=== PATIENT | female | born 1985 | race Caucasian/White ===

== ENCOUNTER 2024-06-05 04:55 | Inpatient (IN) | payer BC, SELFPAY ==
[2024-06-05] VITALS (112 sets, daily range): BP systolic 81–123; BP diastolic 30–106; PULSE 62–222; RESP 16–18; TEMP 36.8–37; O2SAT 93–100; BMI 26.6
--- NOTE | 2024-06-05 05:41 | LDADM ---
This patient, Tracy Arteaga, was admitted to Labor/Delivery/Recovery 104 on 06/05/24 at 04:55. Plans for labor, pain management and were discussed with patient. Patient/family oriented to hospital policies and general routines including ID bracelet, bed and alarms, visiting hours, pain management, procedures, bathroom and other care routines, personal items, smoking policy, room service/diet and guest tray routines, infant security routines, and visiting hours. Patient/Family are encouraged to report perceived risks to care and to ask questions if they do not understand what they are told or what they should do. See OBIX for further documentation.
[2024-06-05 05:43] LABS: Basophils Percent Auto 0.1 % (0.2-1.2); Hematocrit 34.5 % (37.0-47.0); Hemoglobin 11.5 g/dL (12.0-15.0); Immature Granulocyte Absolute 0.08 K/mm3 (0.00-0.031); Immature Granulocyte Percent A 1.1 % (0-0.5); Lymphocytes Absolute Auto 2.04 K/mm3 (0.9-3.2); Lymphocytes Percent Auto 26.9 % (18.3-44.2); Mean Corpuscular HGB Conc 33.3 g/dl (32-36); Mean Corpuscular Hemoglobin 29.7 pg (26-34); Mean Corpuscular Volume 89.1 fl (80-100); Mean Platelet Volume 10.9 fl (7.4-10.4); Monocytes Absolute Auto 0.6 K/mm3 (0.1-0.6); Monocytes Percent Auto 8.5 % (2.6-8.5); Neutrophils Absolute Auto 4.8 K/mm3 (1.3-6.7); Neutrophils Percent Auto 63.4 % (45.5-73.1); Platelet Count Result 184 k/mm3 (150-375); Red Blood Count 3.87 M/mm3 (4.2-5.4); Red Cell Distribution Width 12.5 % (11.5-14.5); White Blood Count 7.6 K/mm3 (4.5-10.0)
[2024-06-05] MEDS: LACTATED RINGERS 1,000 ML 125 ML IV CONT ×2 (06:30→08:56)
[2024-06-05] MEDS: OXYTOCIN 30 UNITS/NS 500 ML 30 UNITS/500 ML BAG IV CONT (06:30)
[2024-06-05 07:24] LABS: HIV 1/2 Ab P24 Ag Result Negative (Negative)
[2024-06-05 07:57] LABS: Rapid Plasma Reagin Non-Reactive (NonReactive)
--- NOTE | 2024-06-05 08:29 | PM.IMHP ---
H&P: HPI History of Present Illness Date/Time: 06/05/24 08:29 Chief Complaint: Here for induction of labor. Narrative: 38 y/o at 39 weeks here for induction of labor. GBS neg. Review of Systems Review of Systems: All systems reviewed & are unremarkable except as noted in HPI and below PMFSH Past Medical History Medical History Ulnar nerve entrapment Surgical History Surgical History History of appendectomy Family History Family History Mother Hypertension Social History Social History Smoking status: Never smoker Substance use: never Do You Feel Safe in your Home?: Yes Lack of Transportation: No Lack of Food: Never True Current Housing: I Have Housing Concerned About Future Housing: No Difficulty Paying Gas/Electric Bills: No Difficulty Paying for Meds: No Currently Unemployed: No Education: Bachelor's Degree Difficulty w/ Childcare or Family Care: No Spiritual care concerns: No Meds Home Medications and Allergies Home Medications Medication Instructions Recorded Confirmed Type vits no.126-ferrous fum 1 tablet PO DAILY 05/22/24 05/22/24 History 28 mg iron-folic acid 800 mcg tablet (Classic ) Allergies Allergy/AdvReac Type Severity Reaction Status Date / Time No Known Allergies Allergy Verified 05/22/24 14:30 Vital Signs Vital Signs - 24 hr 06/05/24 06:36 06/05/24 06:45 06/05/24 07:00 Temperature 36.9 C Pulse Rate 78 90 88 Blood Pressure 120/81 115/78 119/80 Pulse Oximetry Oxygen Delivery 06/05/24 07:03 06/05/24 07:08 06/05/24 07:13 Temperature Pulse Rate Blood Pressure Pulse Oximetry 97 97 96 Oxygen Delivery 06/05/24 07:15 06/05/24 07:18 06/05/24 07:23 Temperature Pulse Rate 93 Blood Pressure 119/66 Pulse Oximetry 96 96 Oxygen Delivery 06/05/24 07:26 06/05/24 07:31 06/05/24 07:36 Temperature Pulse Rate Blood Pressure Pulse Oximetry 98 99 100 Oxygen Delivery 06/05/24 07:41 06/05/24 07:45 06/05/24 07:46 Temperature Pulse Rate 82 Blood Pressure 117/74 Pulse Oximetry 98 98 Oxygen Delivery 06/05/24 07:51 06/05/24 07:56 06/05/24 08:00 Temperature Pulse Rate 97 Blood Pressure 116/81 Pulse Oximetry 99 99 Oxygen Delivery 06/05/24 08:01 06/05/24 08:06 06/05/24 08:11 Temperature Pulse Rate Blood Pressure Pulse Oximetry 99 99 98 Oxygen Delivery 06/05/24 08:15 06/05/24 08:16 06/05/24 08:21 Temperature Pulse Rate 79 Blood Pressure 109/73 Pulse Oximetry 98 99 Oxygen Delivery 06/05/24 08:26 06/05/24 05:41 Temperature Pulse Rate Blood Pressure Pulse Oximetry 99 Oxygen Delivery Room Air Exam Const: Orientation/consciousness: patient oriented x3 Other: Well-developed, well-nourished female in no acute distress. Neck: Thyroid: thyroid normal Lymphatic: no lymphadenopathy noted (in neck, axilla or inguinal nodes) Resp: Effort & Inspection: normal respiratory effort Auscultation: clear to auscultation bilaterally Cardio: Rate: regular rate Rhythm: regular rhythm Heart sounds: S1 normal heart sound present and S2 normal heart sound present GI: Other: ABD: Soft, nontender, nondistended, gravid. NST reactive. TOCO: irregular contractions. Reji's: Vertex, EFW 8#. : General: Yes no CVA tenderness Other: Cervix 4/50/-2. Vertex. AROM with clear fluid. Back/Spine/Pelvis: Back: no CVA tenderness Skin: General skin exam: normal color and no rashes or lesions noted Neuro: General: patient oriented x3 Extrem: Other: Extremities: nontender with no edema Psych: Mental Status: mental status grossly normal Affect: normal affect H&P: Results Labs Labs: Short CBC 06/05/24 Range/Units 05:07 WBC 7.6 (4.5-10.0) K/mm3 Hgb 11.5 L (12.0-15.0) g/dL Hct 34.5 L (37.0-47.0) % Plt Count 184 (150-375) k/mm3 Assessment and Plan Assessment and plan (1) Term : Code(s): Z34.90 - Encounter for supervision of normal , unspecified, unspecified trimester Status: Acute Assessment and Plan: A: IUP at 39 weeks here for scheduled induction of labor. P: We reviewed risks, benefits and alternatives to induction of labor, and she would like to proceed. Oxytocin. Anticipate .
--- NOTE | 2024-06-05 09:33 | P.PNAN_ITS ---
Anes - Initial Pre Proc Eval Procedure: labor epidural Date/Time: 06/05/24 09:33 Surgeon: Raul Smith MD Pre Op Diagnosis: labor pain Pre Op Diagnosis: IOL Patient Data Age: 38 Gender: F Height: 1.65 m Weight: 72.72 kg Last Vital Signs Temp 36.9 C 06/05/24 07:00 Pulse 70 06/05/24 09:33 BP 104/57 L 06/05/24 09:33 Pulse Ox 99 06/05/24 09:31 O2 Del Method Room Air 06/05/24 05:41 Allergies Allergy/AdvReac Type Severity Reaction Status Date / Time No Known Allergies Allergy Verified 05/22/24 14:30 Home Medications Medication Instructions Recorded Confirmed Type vits no.126-ferrous fum 1 tablet PO DAILY 05/22/24 05/22/24 History 28 mg iron-folic acid 800 mcg tablet (Classic ) Laboratory Tests 06/05/24 05:07 WBC 7.6 K/mm3 (4.5-10.0) RBC 3.87 L M/mm3 (4.2-5.4) Hgb 11.5 L g/dL (12.0-15.0) Hct 34.5 L % (37.0-47.0) MCV 89.1 fl (80-100) MCH 29.7 pg (26-34) MCHC 33.3 g/dl (32-36) RDW 12.5 % (11.5-14.5) Plt Count 184 k/mm3 (150-375) MPV 10.9 H fl (7.4-10.4) Immature Gran % (Auto) 1.1 H % (0-0.5) Neut % (Auto) 63.4 % (45.5-73.1) Lymph % (Auto) 26.9 % (18.3-44.2) [place] % (Auto) 8.5 % (2.6-8.5) Eos % (Auto) 0.0 % (0-4.4) Baso % (Auto) 0.1 L % (0.2-1.2) Lymph # (Auto) 2.04 K/mm3 (0.9-3.2) [place] # (Auto) 0.6 K/mm3 (0.1-0.6) Eos # (Auto) 0.0 K/mm3 (0-0.3) Baso # (Auto) 0.0 K/mm3 (0.0-0.1) Abs Immat Gran (auto) 0.08 H K/mm3 (0.00-0.031) Absolute Neuts (auto) 4.8 K/mm3 (1.3-6.7) Absolute Nucleated RBC 0.000 K/mm3 (0.0-0.012) Nucleated RBC % 0.0 % (0.0-0.2) RPR Non-reactive (NonReactive) HIV 1&2 Ab/P24 Ag 4thGn Negative (Negative) Blood Type O Positive Antibody Screen Negative Patient hx anesthesia problems: none Family hx anesthesia problems: none Results Review: All pre-operative results and documents have been reviewed as part of the pre- operative evaluation. [facility] Past Medical History Medical History Ulnar nerve entrapment Surgical History Surgical History History of appendectomy Family History Family History Mother Hypertension Social History Social History Smoking status: Never smoker Substance use: never Do You Feel Safe in your Home?: Yes Lack of Transportation: No Lack of Food: Never True Current Housing: I Have Housing Concerned About Future Housing: No Difficulty Paying Gas/Electric Bills: No Difficulty Paying for Meds: No Currently Unemployed: No Education: Bachelor's Degree Difficulty w/ Childcare or Family Care: No Spiritual care concerns: No Anes - Eval Final PreProcedure Day of Procedure 06/05/24 09:33 Patient weight: overweight ASA classification: II Anesthetic plan: proceed Anesthesia type and monitoring: regional epidural and standard monitoring Results Review: All pre-operative results and documents have been reviewed as part of the pre- operative evaluation. Informed Consent: The patient's anesthetic plan and its attendant risks and benefits were discussed with the patient/family/POA. Questions were solicited and answers provided to the satisfaction of the patient/family/POA.
--- NOTE | 2024-06-05 12:08 | PM.OBPRVD ---
OB - Vaginal Delivery Note Procedure Delivery date: 06/05/24 Events: Elective Induction of Labor Induction method: Per Pitocin Protocol Delivery augmentation: Rupture of Membranes Delivery monitor: External FHT and External Uterine Route of delivery: Episiotomy description: None Laceration Description: None Specimen: Yes (cord blood) Quantitative Blood Loss (ml): 80 Anesthesia type: Epidural Disposition: PACU Complications: None Narrative: 38 y/o at 39 weeks gestation who presented to the hospital for induction of labor. Oxytocin was administered intravenously. Amniotomy was performed with return of clear fluid. She received an epidural for pain control. Her labor progressed and her cervix dilated completely. She pushed with good effort and delivered the 's head to the perineum, followed by the body. The nose and mouth were bulb suctioned. After a delay, the cord was clamped and cut. The infant was handed off the field. Cord blood was collected. The placenta delivered spontaneously and was grossly normal in appearance. The usual 3 vessel cord was noted. There were no lacerations. Needle and instrument counts were correct. The patient was taken to recovery room in stable condition. The went to the nursery in stable condition. I was present and scrubbed for the entire delivery. [place] Baby Date of : 06/05/24 Time of : 11:52 Gestational Age by Date: 39 gender: Male presentation: vertex position: Left Occiput Posterior Placenta delivery description: Spontaneous Cord Vessel Description: 3 Vessels and Delayed Cord Clamping score one minute: 8 score five minutes: 9
--- NOTE | 2024-06-05 12:09 | PM.OBDSVD ---
DS: Admitting Diagnosis Discharge Date 06/06/24 Admitting Diagnosis IUP at 39 weeks DS: Discharge Diagnosis Discharge Diagnosis (1) (normal spontaneous vaginal delivery): Code(s): O80 - Encounter for full-term uncomplicated delivery Status: Acute OB - DS: Summary OB Procedures : None OB Procedures Intrapartum: Spontaneous Vag Delivery OB Procedures: : None Peripartum Data Laceration Description: None Episiotomy description: None Time Spent with Patient Time attestation: Total time spent providing and/or coordinating discharge services: DS: Data Data Completed and Pending Labs on day of discharge: Labs from last 24 hours 06/05/24 05:07 WBC 7.6 RBC 3.87 L Hgb 11.5 L Hct 34.5 L MCV 89.1 MCH 29.7 MCHC 33.3 RDW 12.5 Plt Count 184 MPV 10.9 H Immature Gran % (Auto) 1.1 H Neut % (Auto) 63.4 Lymph % (Auto) 26.9 [place] % (Auto) 8.5 Eos % (Auto) 0.0 Baso % (Auto) 0.1 L Lymph # (Auto) 2.04 [place] # (Auto) 0.6 Eos # (Auto) 0.0 Baso # (Auto) 0.0 Abs Immat Gran (auto) 0.08 H Absolute Neuts (auto) 4.8 Absolute Nucleated RBC 0.000 Nucleated RBC % 0.0 RPR Non-reactive HIV 1&2 Ab/P24 Ag 4thGn Negative Blood Type O Positive Antibody Screen Negative Discharge Plan Discharge Attending physician on discharge: Raul Smith Discharging Clinician: Raul Smith Patient Disposition: Home, Self-Care Activity: pelvic rest Diet: regular Discharge Instructions: FEEDING PLAN: Your baby's doctor has recommended your infant receive supplementation after . You are supplementing due to: Your baby needs to feed every three hours. You may have to wake your baby to feed. Allow your baby to attempt at breast for at least 15 minutes before supplementation is given. IF BABY IS NOT SATISFIED OR NOT HAVING THE REQUIRED WET DIAPERS FOR THEIR DAYS OLD, YOU SHOULD INCREASE THE FREQUENCY AND SUPPLEMENTATION VOLUME. NOTIFY YOUR BABY?S DOCTOR IF YOUR BABY DOES NOT HAVE THE REQUIRED URINE OUTPUT. You should pump after each , attempt or with the nipple shield. Pump each breast for 10-15 minutes. Pumping will help stimulate your breasts to produce milk. If you are able to pump any volume, it can be given to the baby in addition to giving formula. Follow the collection and storage sheet given to you in the Mom and Baby Guide. Remember to keep track of all feedings/elimination on the blue worksheet provided. Your baby may be supplemented with pumped breastmilk or formula: At least 20-30 ml, increasing the volume as ?s need increases It is ok to give more supplementation (breastmilk or formula) if seems unsatisfied or continues to show feeding cues after feedings. Continue supplementation until your baby has been evaluated by your baby?s doctor or the follow up nurse at the hospital. You may contact the Team at [phone] for questions and appointments. Please bring this feeding plan to your follow up visit and to your infant?s first doctor?s appointment. These discharge instructions have been explained to me and I have received a copy. Call or return if temperature above 100.4? F, increased abdominal pain, increased vaginal bleeding or any new problems. Stand Alone Forms: General Discharge Information Follow-up/Referrals: Raul Smith MD [Physician] - 6 Weeks Discharge Medications: New ibuprofen 600 mg tablet 600 mg PO Q6H PRN (Reason: cramps) Qty: 30 0RF Continued Classic 28 mg iron- 800 mcg Tablet 1 tablet PO DAILY Date of admission: 06/05/24 04:55 Primary Care Provider: PHYSICIAN,BULLARD MACHINE OPERATOR Admitting Provider: Raul Smith Attending physician on admission: Raul Smith Condition: Stable
[2024-06-05] MEDS: OXYTOCIN 30 UNITS/NS 500 ML 30 UNITS/500 ML BAG 125 UNITS IV CONT (12:20)
[2024-06-05] MEDS: IBUPROFEN 600 MG TABLET PO (14:33)
[2024-06-05] MEDS: WITCH HAZEL 40 PADS 1 PAD TOPICAL (14:33)
[2024-06-05] MEDS: DOCUSATE SODIUM 100 MG CAPSULE PO (15:53)
--- NOTE | 2024-06-05 16:02 | PC.NURSE ---
1600. Introductions were made, then consulted with patient to assess needs related to . Mom reports she plans to exclusively breastfeed baby, and that she breastfed her last two babies. Encouraged understanding of the benefits of skin to skin (demonstrating unwrapping infant and placing upright on her chest), stimulating with massage touch, changing positions to encourage wakefulness, how to watch for early feeding cues, responsive feeding, feeding on demand (aiming for 8-12 times in 24 hours, about every 2-3 hours), milk production, building/maintaining a milk supply, duration of feeding, signs of adequate intake/output and how to record on the feeding sheet. Reviewed positioning and ear, shoulder, hip alignment, supporting the breast to facilitate a deep latch, asymmetrical latch (off-center), leading with the chin with a big, open, wide gape and body close to mother. Infant with no feeding cues at this time, mom encouraged to call the phone with infants next feed or feeding cues to have latch assessed. Mom has two other children and 2 additional visitors at this time. Mother voiced understanding of skin to skin, stimulating with massage touch, responsive feedings, hand expressed colostrum, talking to to encourage if it has been 2 -2.5 hours since the start of the last , to call if does not latch, or if there is discomfort with . Resources used for education were facilitated with the visual educational. Inpatient resources provided feeding sheet, name written on the communication board, and the mom/baby guide. Parents voiced understanding of information, demonstrated learning and will call if there is a request for assistance. Reported to the Primary RN.
--- NOTE | 2024-06-05 17:06 | PC.NURSE ---
1706. Mom called to have take at look at 's latch to assess and educate on listening for swallows. Mom independently latched infant to the left breast in cross cradle position. Infant maintained latch in a rocker motion with continuous suckling and swallowing. Education given to the mother of how to visualize the suckling (with good rocking jaw motion), swallows (dropping of the lower jaw) and how to listen for drinking at the breast (the ka sound). Infant was able to maintain latch without pain to mother protecting the nipple with optimal positioning and latching. Reviewed comfort measures of healing with a warm, wet washcloth to rinse breast, then leave open to air-dry, good handwashing when or touching the breast/nipples to prevent infection. mom voiced understanding of information, demonstrated learning and will call if there is a request for assistance. Reported to the Primary RN.
--- NOTE | 2024-06-05 17:40 | OBPPTRN ---
Patient transferred to post room #291 via (wheelchair). Support person present. Oriented to unit, room, information board, rooming in, admission packet and security measures. Patient verbalizes understanding.
[2024-06-06 03:17] VITALS: BP 112/69; PULSE 65; RESP 18; TEMP 36.3; O2SAT 100
[2024-06-06] MEDS: IBUPROFEN 600 MG TABLET PO (03:36)
[2024-06-06 04:41] LABS: Hemoglobin 10.5 g/dL (12.0-15.0)
[2024-06-06 08:10] VITALS: BP 113/68; PULSE 66; RESP 16; TEMP 36.6; O2SAT 100
[2024-06-06] MEDS: MULTIVIT/MIN/PREN/FOL AC/IRON TABLET 1 TAB PO (08:48)
[2024-06-06] MEDS: DOCUSATE SODIUM 100 MG CAPSULE PO (08:48)
--- NOTE | 2024-06-06 10:06 | PC.NURSE ---
Consulted with mother concerning needs and she shared her ability to independently latch infant optimally without pain. Mother is feeding appropriately for growth of and understands stimulating to eat if needed. Infant has had appropriate feedings in the last 24 hours meets the outcomes for weight, output, blood sugar and jaundice at this time. Reinforced understanding of milk production, transition of milk, signs of adequate intake, transition of stool, prevention/relief of engorgement, plugged ducts, mastitis, responsive watching for feeding cues, the different methods of stimulating to breastfeed 1-3 hours after the start of the last feeding, community resources, and when to call a provider using the resource of the feeding sheet along with the mom and baby guide. Mother voiced understanding of the information shared, is confident to continue effectively her infant at home, when to call for assistance, denies any additional assistance or education at this time. Reported to the Primary RN.
--- NOTE | 2024-06-06 12:32 | PM.OBPNVD ---
OB - PN: Subj Subjective Date/time seen: 06/06/24 12:32 Narrative: Pain OK. Would like circumcision for son. Would like to go home. OB - PN: Obj Data Labs 06/06/24 03:33 Labs: Laboratory Results - last 24 hr 06/06/24 03:33 Hgb 10.5 L Hct 30.0 L OB - PN A/P Plan day: 1 Comments: A: PPD#1, doing well. P: Home to f/u 6 weeks. Exam Psych: Other: AVSS ABD soft, nontender, fundus firm EXT nontender
[2024-06-07 10:28] VITALS: BP 114/73; PULSE 73; RESP 18; TEMP 37; O2SAT 100
== END 2024-06-06 14:38 | disposition home or self-care (01) | DRG 807 ==
LOC: ANHLDR 12:10 → ANHOB2 15:35
PROVIDERS: Admitting Provider Obstetrics & Gynecology; Visit Provider Obstetrics & Gynecology
DX: O80 Encounter for full-term uncomplicated delivery (principal); Z37.0 Single live birth; Z3A.39 39 weeks gestation of pregnancy
CPT/HCPCS: 36415; 85014; 85018; 85025; 86592; 86703; 86850; 86900; 86901; A9270; G0432; J2590; J2795; J7120

== ENCOUNTER 2024-09-05 15:25 | Emergency (ER) | payer BC, SELFPAY ==
--- NOTE | ~2024-09-05 | XR_ITS ---
CHEST RADIOGRAPH, PA AND LATERAL CLINICAL HISTORY: cough, fever . COMPARISON: 10/02/2007 TECHNIQUE: PA and lateral views of the chest. FINDINGS The cardiomediastinal silhouette is unremarkable. Consolidation within the superior segment of the left lower lobe. The remainder of the lungs are clear. IMPRESSION: Left lower lobe infiltrate Reviewed, dictated and finalized at location A. SER IMPRESSION: Left lower lobe infiltrate
[2024-09-05 15:34] VITALS: BP 111/77; PULSE 67; RESP 16; TEMP 36.8; O2SAT 99
--- NOTE | 2024-09-05 15:40 | ED_ITS ---
HPI - URI/Sore Throat General Chief Complaint: Upper Respiratory Infection Stated Complaint: Flu Symptoms Source: patient and RN notes reviewed Mode of arrival: ambulatory Limitations: no limitations History of Present Illness HPI Narrative: Patient is a 38-year-old female who presents to the [facility] with complaints frequent nonproductive cough that is starting to become productive today. She states that on , she had fever, chills, body aches, and headache. She states that those symptoms have resolved. She developed the cough on Wednesday. She states that the cough continues to worsen. Denies chest pain or shortness of breath. Denies recent fever over the last few days. Her respirations are unlabored. Related Data Allergies Allergy/AdvReac Type Severity Reaction Status Date / Time No Known Allergies Allergy Verified 09/05/24 15:32 Review of Systems Review of Systems: CONSTITUTIONAL: Denies fever, chills, or sweats. EYES: Denies visual changes, redness, or discharge. ENT: Denies otalgia and sore throat CARDIOVASCULAR: Denies chest pain, palpitations, or edema. RESPIRATORY: Reports cough but denies dyspnea. GASTROINTESTINAL: Denies abdominal pain, nausea, vomiting, or diarrhea. GENITOURINARY: Denies dysuria or hematuria. SKIN: Denies rash or itching. MUSCULOSKELETAL: Denies back pain, joint pain, or myalgia. NEUROLOGIC: Denies headache, numbness, or weakness. Pertinent positives per HPI. [facility] Past Medical History Medical History Ulnar nerve entrapment Surgical History Surgical History History of appendectomy Family History Family History Mother Hypertension Social History Social History Smoking status: Never smoker Substance use: never Do You Feel Safe in your Home?: Yes Lack of Transportation: No Lack of Food: Never True Current Housing: I Have Housing Concerned About Future Housing: No Difficulty Paying Gas/Electric Bills: No Difficulty Paying for Meds: No Currently Unemployed: No Education: Bachelor's Degree Difficulty w/ Childcare or Family Care: No Spiritual care concerns: No Comments At the time of my signature, I reviewed and agree with the nursing past medical, surgical, social, and family history. There is no relevant family history pertinent to the patient complaint. Exam Narrative: GENERAL: This is a well-nourished, well-developed patient, in no apparent distress. HEAD: normocephalic, atraumatic. EYES: PERRL. Sclera clear/white. Vision is grossly intact. EARS: External ears normal, auditory canals clear and without drainage, TMs normal without perforation. Hearing grossly intact. NOSE: External nose normal with no obvious nasal discharge, nares without redness, no rhinorrhea. THROAT: Mucous membranes moist, posterior pharynx clear. NECK: Neck supple, non-tender without lymphadenopathy, masses or thyromegaly. CARDIOVASCULAR: Regular rate and rhythm without murmurs, gallops, or rubs. RESPIRATORY: Clear to auscultation. Breath sounds equal bilaterally. No wheezes, rales, or rhonchi. GASTROINTESTINAL: Abdomen soft, non-tender, nondistended. Bowel sounds are active. No hepato-splenomegaly, or palpable masses. No guarding. SKIN: warm, intact with no suspicious lesions or rash, good texture and turgor. NEURO: awake, alert, and oriented to person, place and time. There were no obvious focal neurologic abnormalities. EXTREMITIES: No clubbing, cyanosis, or edema. No joint tenderness, effusion, or edema noted. BACK: Nontender without deformity or crepitance. No flank tenderness. Course Course Level of Care: Express Care Visit Vital Signs Vital signs: Vital Signs Temperature 98.3 F 09/05/24 15:34 Pulse Rate 67 09/05/24 15:34 Respiratory Rate 16 09/05/24 15:34 Blood Pressure 111/77 09/05/24 15:34 Pulse Oximetry 99 09/05/24 15:34 Temperature 98.3 F 09/05/24 15:34 Pulse Rate 67 09/05/24 15:34 Respiratory Rate 16 09/05/24 15:34 Blood Pressure 111/77 09/05/24 15:34 Pulse Oximetry 99 09/05/24 15:34 Oxygen Delivery Room Air 09/05/24 15:39 Reviewed MDM - URI/Sore Throat MDM Narrative Medical decision making narrative: Take antibiotic as directed. May use the inhaler every 4-6 hours as needed for coughing. Increase fluids at home. Avoid any and all smoke. May use a humidifier in the bedroom. Increase your Vitamin C. Follow-up with personal physician in 2-5 days. Differential Diagnosis Differential diagnosis: Likely upper respiratory infection, viral infection, influenza and other (covid, pneumonia) Lab Data Attestation: I reviewed the patient's lab results. Labs: Lab Results 09/05/24 Range/Units 15:48 POC Influenza A Ag Negative (Negative) POC Influenza B Ag Negative (Negative) POC SARS CoV-2 Ag Negative (Negative) Imaging Data Attestation: I personally reviewed and interpreted this imaging study as follows: Radiologist's impression: Close Chest X-Ray (Signed) Daniella Saleh - 09/05/24 Launch?[facility] [address] [place] [address] XRay Report Signed Patient: Tracy Arteaga : 1985 MR#: [id number] Age: 38 Acct:[id number] Loc: [facility] ADM Date: 09/05/24Attending Dr: Ordering Physician: Na Casillas APRN Date of Service: 09/05/24 Procedure(s): XR chest 2V Accession Number(s): [id number] cc: Na Casillas APRN; [employer]UN[employer]Y [employer] P[employer] OPERATOR PHYSICIAN~ CHEST RADIOGRAPH, PA AND LATERAL CLINICAL HISTORY: cough, fever . COMPARISON: 10/02/2007 TECHNIQUE: PA and lateral views of the chest. FINDINGS The cardiomediastinal silhouette is unremarkable. Consolidation within the superior segment of the left lower lobe. The remainder of the lungs are clear. IMPRESSION: Left lower lobe infiltrate Reviewed, dictated and finalized at location A. ING AND REGULATING CHIEF Please be advised this is a medical document. It is intended for [id number] communication. It is written in medical language and may contain unfamiliar abbreviations or verbiage. Medical documents are intended to carry relevant information, facts as evident, and the clinical opinion of the practitioner at the time of the encounter. This report may have been done utilizing a voice recognition system. Attempts have been made to correct errors. However, there may be uncorrected grammatical, spelling, and recognition errors present. The file time of this note does not necessarily represent the time of service. Dictated By: Daniella Saleh MD 09/05/24 1600 Signed By: <Electronically signed by Daniella Saleh MD in OV> 09/05/24 1607 Critical Care Time Critical Care Time Critical Care Time: No Discharge Plan Discharge Clinical Impression: Community acquired pneumonia Qualifiers: Laterality: left Lung location: lower lobe of lung Qualified Code(s): J18.9 - Pneumonia, unspecified organism Patient Disposition: Home, Self-Care Condition: Stable Instructions: Antibiotic Form, Community Acquired Pneumonia (ED) Additional Instructions: Take antibiotic as directed. May use the inhaler every 4-6 hours as needed for coughing. Increase fluids at home. Avoid any and all smoke. May use a humidifier in the bedroom. Increase your Vitamin C. Follow-up with personal physician in 2-5 days. Patient Language: Lao Prescriptions: New azithromycin 250 mg tablet See Rx Instructions .ROUTE .COMPLEX Qty: 6 0RF Rx Instructions: For 250 mg dose pack: take 500 mg today (day 1), then 250 mg for 4 days (days 2-5) albuterol sulfate [Ventolin HFA] 90 mcg/actuation HFA aerosol inhaler 2 puff inhalation QID PRN (Reason: shortness of breath or wheezing) Qty: 6.7 0RF Follow-up/Referrals: PHYSICIAN,LAUNDRY BAG PUNCH OPERATOR [Primary Care Provider] - Time of Disposition: 16:15
[2024-09-05 15:52] LABS: EDCOVIDSCREEN Negative (Negative); EDINFLUASCREEN Negative (Negative); EDINFLUBSCREEN Negative (Negative)
== END 2024-09-05 16:17 | disposition home or self-care (01) ==
PROVIDERS: Emergency Provider Nurse Practitioner
DX: J18.9 Pneumonia, unspecified organism (principal); Z20.822 Contact with and (suspected) exposure to COVID-19
CPT/HCPCS: 71046; 87426; 87804; 99213; G0463